=== PATIENT | male | born 1965 | race African-American/Black ===

== ENCOUNTER 2024-07-24 01:33 | Emergency (ER) | payer MEDICAID, OTHER ==
[~2024-07-24] VITALS: Ht 188 cm; Wt 107.0 kg
[2024-07-24 02:00] VITALS: O2SAT 98
[2024-07-24] MEDS ORDERED: IBUP-2029 MT (04:41)
[2024-07-24 05:56] VITALS: BP 158/91; PULSE 70; RESP 20; TEMP 36.55848; O2SAT 100
== END 2024-07-24 05:06 | disposition home or self-care (01) ==
LOC: ER 01:33
DX: S00.81XA Abrasion of other part of head, initial encounter (principal); M25.512 Pain in left shoulder; M25.562 Pain in left knee; V49.9XXA Car occupant (driver) (passenger) injured in unspecified traffic accident, initial encounter; Y93.89 Activity, other specified; Y92.89 Other specified places as the place of occurrence of the external cause; Y99.8 Other external cause status
CPT/HCPCS: 72100; 73030; 73090; 73560; 99284